=== PATIENT | female | born 2000 | race Caucasian/White ===

== ENCOUNTER 2019-07-31 05:05 | Emergency (ER) | payer OTHER ==
[~2019-07-31] VITALS: Ht 160 cm; Wt 56.7 kg
[~2019-07-31 05:05] MED LIST: ACCUTANE PO; CLEOCIN HCL150 MG PO; JUNEL1 EAC1 PO; NORCO 5-325 TA1 EACH PO
[2019-07-31] MEDS ORDERED: ADDERALL 20 MG20 M1 PO (05:16)
[2019-07-31] MEDS ORDERED: BIRTH CONTROL (05:16)
[2019-07-31 05:29] LABS: URINE BILIRUBIN NEGATIVE (Negative); URINE BLOOD 3+ (Negative); URINE CLARITY CLEAR; URINE COLOR ORANGE; URINE GLUCOSE-RANDOM TRACE (Negative); URINE KETONES NEGATIVE (Negative); URINE LEUKOCYTES-REFLEX TRACE (Negative); URINE PROTEIN 2+ (Negative); URINE SPECIFIC GRAVITY 1.015 (1.005-1.030)
[2019-07-31 05:30] LABS: URINE NITRITE-REFLEX POSITIVE (Negative)
[2019-07-31 05:33] LABS: SQUAMOUS 4-10 Moderate /LPF (0-3); URINE RBC 3-10 Few /HPF (0-2); URINE WBC-REFLEX 6-15 Few /HPF (0-5)
[2019-07-31 05:34] LABS: CASTS None Seen /LPF (None Seen); CRYSTALS None Seen /LPF (None Seen); MUCUS 0-3 Light strn/LPF (None Seen)
[2019-07-31] MEDS ORDERED: PYRIDIUM200 MG PO (06:02)
[2019-07-31] MEDS ORDERED: AUGMENTIN 500-1 EACH PO (06:02)
[2019-07-31 06:06] VITALS: BP 110/70
== END 2019-07-31 06:06 | disposition home or self-care (01) ==
LOC: M.ERS 05:05
PROVIDERS: Personal Emergency Response Attendant
DX: N39.0 Urinary tract infection, site not specified (principal)

== ENCOUNTER 2019-11-11 03:18 | Emergency (ER) | payer OTHER ==
[~2019-11-11] VITALS: Ht 160 cm; Wt 56.7 kg
[~2019-11-11 03:18] MED LIST changes: +ADDERALL 20 MG20 M1 PO; +AUGMENTIN 500-1 EACH PO; +BIRTH CONTROL; +PYRIDIUM200 MG PO
[2019-11-11 04:26] LABS: URINE BILIRUBIN NEGATIVE (Negative); URINE BLOOD 2+ (Negative); URINE CLARITY CLEAR; URINE COLOR YELLOW; URINE GLUCOSE-RANDOM NEGATIVE (Negative); URINE KETONES NEGATIVE (Negative); URINE LEUKOCYTES-REFLEX NEGATIVE (Negative); URINE NITRITE-REFLEX NEGATIVE (Negative); URINE PROTEIN NEGATIVE (Negative); URINE SPECIFIC GRAVITY >= 1.030 (1.005-1.030); URINE UROBILINOGEN 0.2 E.U./dl (0.2-1.0)
[2019-11-11 04:41] LABS: ABSOLUTE EOSINOPHILS 0.1 thou/uL (0.0-0.7); ABSOLUTE LYMPHOCYTES 1.8 thou/uL (0.8-5.3); ABSOLUTE MONOCYTES 0.8 thou/uL (0.0-1.2); ABSOLUTE NEUTROPHILS 9.5 thou/uL (1.6-8.1); BASOPHILS 0.4 %; EOSINOPHILS 1.2 %; HEMATOCRIT 38.8 % (37.0-47.0); HEMOGLOBIN 12.9 gm/dL (12.0-15.0); LYMPHOCYTES 14.3 %; MCHC 33.4 g/dL (28.0-37.0); MCV 80.7 fL (80.0-100.0); MONOCYTES 6.6 %; NUCLEATED RBCS 0 /100WBC; PLATELET COUNT* 230 thou/uL (150-400); POLYS 77.5 %; WBC 12.2 thou/uL (4.0-11.0)
[2019-11-11 04:43] LABS: BACTERIA-REFLEX >30 Many /HPF (None Seen); CASTS None Seen /LPF (None Seen); CRYSTALS None Seen /LPF (None Seen); MUCUS >6 Heavy strn/LPF (None Seen); SQUAMOUS 0-3 Few /LPF (0-3); URINE RBC 3-10 Few /HPF (0-2); URINE WBC-REFLEX None Seen /HPF (0-5)
[2019-11-11 04:52] LABS: CALCIUM 8.9 mg/dL (8.5-10.1); CREATININE 0.7 mg/dL (0.6-1.3); POTASSIUM 3.7 mmol/L (3.5-5.1)
[2019-11-11 04:57] LABS: ALBUMIN 3.4 g/dL (3.4-5.0); TOTAL BILIRUBIN 0.4 mg/dL (<0.1-1.0); TOTAL PROTEIN 6.9 g/dL (6.4-8.2)
[2019-11-11] MEDS ORDERED: CIPROFLOXACIN500 M1 PO (06:19)
[2019-11-11] MEDS ORDERED: ZOFRAN ODT4 MG PO (06:19)
[2019-11-11] MEDS ORDERED: HYDROCODON-ACE1 EAC7 PO (06:19)
[2019-11-11 06:32] VITALS: BP 108/59
== END 2019-11-11 06:34 | disposition home or self-care (01) ==
LOC: M.ERS 03:18
PROVIDERS: Personal Emergency Response Attendant
DX: K52.9 Noninfective gastroenteritis and colitis, unspecified (principal); K80.50 Calculus of bile duct without cholangitis or cholecystitis without obstruction